=== PATIENT | female | born 1990 | race Hispanic/Latino ===

== ENCOUNTER 2020-08-20 08:05 | Emergency (ER) | payer OTHER ==
[~2020-08-20] VITALS: Ht 165.1 cm; Wt 57.2 kg
[2020-08-20] MEDS ORDERED: IOPAMIDOL 370 MG/ML 200 ML INFUS..BTL INJ ONE (08:44)
[2020-08-20] MEDS ORDERED: SODIUM CHLORIDE 0.9% 50ML 50 ML ONE (08:44)
[2020-08-20 10:51] VITALS: BP 114/62
== END 2020-08-20 10:53 | disposition home or self-care (01) ==
LOC: FSED 08:35
DX: R06.00 Dyspnea, unspecified (principal); R05 Cough
CPT/HCPCS: 71260; 80053; 81003; 81025; 85025; 99284; Q9967

== ENCOUNTER 2021-01-01 08:47 | Emergency (ER) | payer OTHER ==
[~2021-01-01] VITALS: Ht 165.1 cm; Wt 62.8 kg
[2021-01-01] MEDS ORDERED: SODIUM CHLORIDE 0.9% 1000ML 1,000 ML IV STA (08:54)
[2021-01-01] MEDS ORDERED: SODIUM CHLORIDE 0.9% 1000ML 1,000 ML ONE (09:15)
[2021-01-01] MEDS ORDERED: FAMOTIDINE 20 MG/2 ML VIAL IV STA (09:29)
[2021-01-01] MEDS ORDERED: FAMOTIDINE40 MG PO (10:53)
[2021-01-01] MEDS ORDERED: DICYCLOMINE HCL10 MG PO (10:54)
[2021-01-01] MEDS ORDERED: SODIUM CHLORIDE 0.9% 50ML 50 ML ONE (12:18)
[2021-01-01] MEDS ORDERED: IOPAMIDOL 370 MG/ML 200 ML INFUS..BTL INJ ONE (12:19)
== END 2021-01-01 11:06 | disposition home or self-care (01) ==
LOC: FSED 08:56
DX: R10.9 Unspecified abdominal pain (principal); K92.1 Melena
CPT/HCPCS: 74177; 80048; 80076; 81003; 81025; 85025; 96374; 99284; J7030; Q9967

== ENCOUNTER 2021-03-26 13:29 | Emergency (ER) | payer OTHER ==
[~2021-03-26] VITALS: Ht 167.6 cm; Wt 62.6 kg
[~2021-03-26 13:29] MED LIST: DICYCLOMINE HCL10 MG PO; FAMOTIDINE40 MG PO
[2021-03-26] MEDS ORDERED: MEDROL4 MG PO (14:14)
== END 2021-03-26 14:24 | disposition home or self-care (01) ==
LOC: FSED 13:34
DX: R20.2 Paresthesia of skin (principal); M79.2 Neuralgia and neuritis, unspecified
CPT/HCPCS: 99283